=== PATIENT | female | born 1990 | race Caucasian/White ===

== ENCOUNTER 2019-03-01 05:57 | Inpatient (IN) ==
[2019-03-01] MEDS ORDERED: FLU Vac QV 19-20 (6Month+)/PF 0.5 ML SYRINGE IM ONE (06:10)
[2019-03-01] MEDS ORDERED: Lidocaine 1% 20 ML MDV INFILT PRN (06:12)
[2019-03-01] MEDS ORDERED: Famotidine 20 MG/2 ML VIAL IVP PRN (06:12)
[2019-03-01] MEDS ORDERED: Naloxone 0.4 MG/ML INJ IVP PRN (06:12)
[2019-03-01] MEDS ORDERED: miSOPROStol 25 MCG TABLET PO PRN (06:12)
[2019-03-01] MEDS ORDERED: Metoclopramide 10 MG/2 ML VIAL IVP PRN (06:12)
[2019-03-01] MEDS ORDERED: *HR* Nalbuphine 10 MG/ML AMPUL IVP PRN (06:12)
[2019-03-01] MEDS ORDERED: Ringers Solution, Lactated 1,000 ML IVC SCH (06:15)
[2019-03-01] MEDS ORDERED: Ringers Solution, Lactated 1,000 ML ONE (06:17)
[2019-03-01 06:35] LABS: Basophils % 0.4 %; Eosinophils # 0.1 K/mcL (0.0-0.6); Eosinophils % 1.1 %; Hematocrit 30.3 % (35.3-44.9); Hemoglobin 9.6 g/dL (11.5-15.4); Immature Granulocytes % 0.7 % (0-4); Lymphocytes # 2.4 K/mcL (0.6-4.6); Mean Corpuscular HGB Conc 31.7 g/dL (31.6-35.5); Mean Corpuscular Volume 78.9 fL (83.0-100.0); Mean Platelet Volume 11.2 fL (9.4-12.4); Monocytes # 0.7 K/mcL (0.0-1.3); Monocytes % 6.1 %; Neutrophils # 7.9 K/mcL (1.6-8.9); Platelet Count 314 K/mcL (140-400); Red Blood Count 3.84 M/mcL (3.82-4.97); Red Cell Distribution Width 14.6 % (11.5-14.5); Segmented Neutrophils % 70.7 %; White Blood Count 11.2 K/mcL (4.3-11.1)
[2019-03-01] MEDS ORDERED: Oxytocin 20 units/ LR 1000 mL 20 UNIT/1,000 ML BAG IVC SCH (06:45)
[2019-03-01] MEDS ORDERED: Oxytocin 20 units/ LR 1000 mL 20 UNIT/1,000 ML BAG IVC ONE (06:46)
--- NOTE | 2019-03-01 06:59 | OB/GYN History & Physical ---
Date of Encounter: 03/01/19 Time of Encounter: 06:56 Assessment and Plan (1) 40 weeks gestation of Current visit: Yes Status: Acute (2) Obesity complicating in third trimester Current visit: Yes Status: Acute Admit for IOL. Cook catheter placed using sterile technique. Balloons inflated with sterile water 60ml uterine and 40ml vaginal. Plan for pitocin. Epidural when requested. Anticipate . Plan per Dr. Melendez History of Present Illness Chief complaint: IOL HPI: Ms. Dillon is a 28 year old female presenting at 40w2d for IOL. She reports having contractions this am. No leaking or bleeding. This has been uncomplicated other than obesity and a kidney stone that she was able to pass. She has had appropriate care with Dr. Melendez after transferring from [place] at 32 weeks. A positive Rubella immune Serologies negative GBS negative Past Med Surg Social Fam HX - Past Medical History Medical history: no medical history Additional medical history: Kidney stone, PCOS Psychiatric history: no psych history - Past Surgical History Surgical History: no surgical history - Social History Smoking Status: Never smoker Smokeless Tobacco Status: No Alcohol use: none Drug use: none - Family History Mother Family Member Ethnicity: Non- Living Status: Still Living Hx Family Cardiac Disorders: No Hx Family Respiratory Disorders: No Hx Family Cancer: No Hx Family GI Disorders: No Hx Family Genitourinary Disorders: No Hx Family Endocrine Disorder: No Hx Family Musculoskeletal Disorders: No Hx Family Neuromuscular Disorders: No Hx Family Neurologic Disorders: No Hx Family HEENT Disorders: No Hx Family Autoimmune Disorders: No Hx Family Reproductive Disorders: No Hx Family Psychosocial Disorders: No Hx Family Medical Disorders: No Obstetrical History - Pregnancies : 1 Medications and Allergies Allergy/AdvReac Type Severity Reaction Status Date / Time No Known Allergies Allergy Verified 03/01/19 06:12 Review of System OB All systems PM: reviewed and no additional remarkable complaints except as stated Exam - Constitutional Constitutional: well developed, well nourished, no acute distress, obese - HEENT HEENT: Mucus Membranes Moist - Lungs Respiratory exam: CTAB - Cardiovascular Cardiovascular exam: RRR - Abdomen Abdomen: Present: gravid, non tender - Extremities Extremities exam: normal inspection - Vulva Vulva: bilateral: normal - Cervix Dilation: 3 (2-3) Effacement: 80 Station: -2 - Anus/Rectum Anus/Rectum: Present: normal perianal skin Results Result Diagrams: 03/01/19 06:15 Abnormal lab results WBC 11.2 K/mcL (4.3-11.1) H 03/01/19 06:15 Hgb 9.6 g/dL (11.5-15.4) L 03/01/19 06:15 Hct 30.3 % (35.3-44.9) L 03/01/19 06:15 MCV 78.9 fL (83.0-100.0) L 03/01/19 06:15 MCH 25.0 pg (28.0-33.3) L 03/01/19 06:15 RDW 14.6 % (11.5-14.5) H 03/01/19 06:15 All other labs normal. - VTE Reasons for not Prescribing Prophylaxis: Treatment not Indicated - Low risk for VTE
[2019-03-01 08:02] LABS: Varicella Zoster IgG Antibody Positive
--- NOTE | 2019-03-01 08:46 | Anesthesia Evaluation PreOp ---
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 FHTs 120s. Height: 5'2" Weight: 233#/ 106kg/ BMI 42.6 NPO (# of Hours): 3 Pain Scale: 4 Pain Scale Used: Numeric (1 - 10) - HEENT Pupil (Motor): Pupils equal, EOMI Mallampati: III Oral Opening: Greater than 3 - PIPELINE SUPERINTENDENT LOC: Oriented PIPELINE SUPERINTENDENT Motor: Normal RUE, Normal LUE, Normal RLE, Normal LLE, Normal Face PIPELINE SUPERINTENDENT Sensory: Normal: RUE, LUE, RLE, LLE, Face - Cardiac Rhythm: Regular - Pulmonary Breath Sounds: bilateral Clear Respiratory Effort: Symmetrical Anesthesia Assess/Plan ASA Score: 3 ([place] BMI 42.6) Level of consciousness: Cooperative, Oriented, Tranquil Anesthetic Plan: Epidural Monitoring Plan: Standard Monitors
[2019-03-01] MEDS ORDERED: Epidural Premix (fent/bupiv) 110 ML EP SCH (09:00)
--- NOTE | 2019-03-01 10:32 | OB Labor Progress Note ---
Date of Encounter: 03/01/19 Time of Encounter: 10:29 Labor Progress Note - Subjective Subjective: Patient denies any concerns. She is feeling contractions and pressure. - Cervix Cervix: 3/80/petit in place - Heart Tones Heart Tones: 120's,category 1 - [place]: q 2-3 minutes - Interventions Interventions: Vaginal petit deflated for cervical exam and re-inflated with 40 ml as before - Plan Plan: Continue pitocin induction with Cook petit in place and EFM in anticipation of vaginal delivery Encouraged patient to get out of her recumbent position to sit on birthing ball or ambulate on monitor
[2019-03-01 10:36] LABS: Amphetamine Screen,Urine Negative ng/mL (Cutoff=1000); Barbiturate Screen,Urine Negative ng/mL (Cutoff=200); Benzodiazepines Screen,Urine Negative ng/mL (Cutoff=200); Cannabinoid Screen,Urine Negative ng/mL (Cutoff = 50); Cocaine Screen,Urine Negative ng/mL (Cutoff= 300); Opiate Screen,Urine Negative ng/mL (Cutoff=300); Phencyclidine Screen,Urine Negative ng/mL (Cutoff=25)
[2019-03-01] MEDS ORDERED: Bupivacaine-MPF 0.25% 10 ML VIAL ONE (12:05)
[2019-03-01] MEDS ORDERED: *HR* FentaNYL (PF) 100 MCG/2 ML VIAL ONE (12:05)
[2019-03-01 13:17] LABS: HIV-1&2 Antibody & p24 Ag Nonreactive (Nonreactive)
--- NOTE | 2019-03-01 14:14 | OB Labor Progress Note ---
Date of Encounter: 03/01/19 Time of Encounter: 14:11 Labor Progress Note - Subjective Subjective: Patient still complains of being uncomfortable on her right side s/p epidural. - Cervix Cervix: 6/90/-3 cephalic - Heart Tones Heart Tones: 130's, category 1 - [place]: q 2 minutes contractions - Interventions Interventions: Enciso is removed from the vagina after allowing the fluid to escape the balloon - Plan Plan: Continue pitocin induction. Call anesthesia to make patient comfortable via epidural. Anticipate vaginal delivery
[2019-03-01] MEDS ORDERED: Lidocaine/EPI 1:200k 2% PF 20 ML VIAL ONE (14:33)
[2019-03-01] MEDS: Ondansetron 4 MG/2 ML VIAL IVP PRN ×2 (15:08→21:59)
--- NOTE | 2019-03-01 16:00 | Anesthesia Procedures ---
Date of Encounter: 03/01/19 Time of Encounter: 12:10 Procedures: Anesthesia - Epidural/Spinal Patient ID/Chart reviewed: Yes Patient examined: Yes OB Eval: Gestational age: 40 OB Eval: : 1 OB Eval: Hx Para: 0 OB Eval: Dilated at (cm): 4 OB Eval: Contractions: Non-stressed pattern Consent Obtained: Yes Supplemental Oxygen: None/Room Air Site Prep: Aseptic Technique, Sterile prep and drape, 0.5% Chlorhexidine/Alcohol Patient position: upright Local Anesthetic: Lidocaine 1% Amount of Local Anesthetic used: 6 Touhy Needle Gauge: 18 Touhy Needle Depth (cm): 8 Catheter Depth at Skin (cm): 15 Test Dose (1.5% Lido + Epi): Volume given (mls): 3 Test Dose Result: Negative Loading Dose: 0.25% Marcaine (mls): 8 Loading Dose: Fentanyl (mcg): 100 Loading Dose Administered: Thru Catheter Infusion Med: 0.125% Bupivacaine w/ 2 mcg/ml Fentanyl Infusion Rate (mls/hr): [address]: Tegaderm, Tape Interspace Used: L3-L4 Loss of Resistance (ESTEVAN): Yes Blood: No CSF: No Paresthesia: No Procedure: Attempt # 1 at L 2-3, easily entered epidural space, unable to pass catheter, patient complaining of severe pain and resistance met. D/C'd cath and attempt # 2 at L3-4, again entered epidural space easily but unable to pass catheter. Attempt # 3 at L5-S1 , again very easily entered the epidural space and was able to pass catheter to 15cm. Dosed as documented, patient got full relief on the left but was still c/o some pain on the right. Positioned patient slightly on right and started infusion. Vitals + FHT's: Vital Signs Time 1210 1245 1250 1255 1300 BP 132/81 107/56 107/59 109/57 114/59 Pulse 89 85 69 70 71 FHTs 130 130 130 130 130
--- NOTE | 2019-03-01 16:12 | OB Labor Progress Note ---
Date of Encounter: 03/01/19 Time of Encounter: 16:10 Labor Progress Note - Subjective Subjective: Pt not comfortable with epidural. Requesting replacement - Cervix Cervix: 9/100/-2 - Heart Tones Heart Tones: Baseline 140 Moderate variability Accelerations present 15x15 No decelerations FHR Category I - [place]: Contractions every 2 minutes and palpate strong - Interventions Interventions: SVE AROM - small amount clear fluid - Plan Physician notified: Yes Physician notified details: Dr. Melendez updated Plan: Continue induction management Frequent position changes Anticipate
--- NOTE | 2019-03-01 17:41 | Anesthesia Progress Note ---
Date of Encounter: 03/01/19 Time of Encounter: 14:40 Anesthesia Note - Note Note: 03/01/19 17:35 called to LDR 12 for continued one-sided pain, on right side with contractions and worsening. Patient moaning with contractions and crying. Previous efforts to place patient on right side were ineffective for improving epidural spread. Epidural catheter hasn't migrated, pulled catheter back to 12cm and increased drip rate to 15ml per hour. Also gave 5ml 2% lido with epi. Discussed with patient that it is likely not going to improve the situation and the next step would be to discontinue the epidural and redo it. Also discussed that given the prior problems with threading the catheterand the multiple attempts, the potential for spinal headache could increase. Patient stated understanding and said she would think about it. Patient's and baby's vital signs stable t hroughout.
--- NOTE | 2019-03-01 17:46 | Anesthesia Procedures ---
Date of Encounter: 03/01/19 Time of Encounter: 16:30 Procedures: Anesthesia - Epidural/Spinal Patient ID/Chart reviewed: Yes Patient examined: Yes OB Eval: : 1 OB Eval: Hx Para: 0 OB Eval: Dilated at (cm): 9 OB Eval: Contractions: Non-stressed pattern Consent Obtained: Yes Supplemental Oxygen: None/Room Air Site Prep: Aseptic Technique, Sterile prep and drape, 0.5% Chlorhexidine/Alcohol Patient position: upright Local Anesthetic: Lidocaine 1% Amount of Local Anesthetic used: 3 Touhy Needle Gauge: 18 Touhy Needle Depth (cm): 8 Catheter Depth at Skin (cm): 12 Test Dose (1.5% Lido + Epi): Volume given (mls): 3 Test Dose Result: Negative Loading Dose: Other: 2% lidocaine with epi Loading Dose Administered: Thru Catheter Infusion Med: 0.125% Bupivacaine w/ 2 mcg/ml Fentanyl Infusion Rate (mls/hr): [address]: Tegaderm, Tape Interspace Used: L5-S1 Loss of Resistance (ESTEVAN): Yes Blood: No CSF: No Paresthesia: No Procedure: called to patient's room, crying and writhing in pain, continues to be only on the right side. Patient agrees to redo the epidural. Epidural space easily entered and catheter easily passed. Bolus given as charted and pump continued at 15ml per hour with previous settings of demand bolus of 4ml Q 20 mins. X 2 per hour. Patient appeared more comfortable and stated was only feeling pressure with contractions. Vitals + FHT's: Vital Signs Time 1630 1646 1650 1655 BP 140/76 134/76 126/72 128/69 Pulse 120 118 110 116 FHTs 120 120 120 120
[2019-03-01] MEDS ORDERED: Mag Hydrox/Al Hydrox/Simeth 30 ML UDC PO STA (19:26)
[2019-03-02] MEDS ORDERED: Ketorolac 30 MG/ML VIAL IM ONE (00:17)
--- NOTE | 2019-03-02 00:38 | OB/GYN Procedure Note ---
Delivery - Delivery Date: 03/02/19 Provider: Mellissa Melendez Intrapartum events: none Delivery induction: AROM, oxytocin, petit Delivery monitor: external FHT, external uterine Anesthesia: epidural Quantitated Blood Loss: 300 - Infant (s) Infant A Infant Delivery Date: 03/02/19 Delivery Time: 00:09 Presentation: vertex Position: OA Route of delivery: Gender: Female Viability: Viable Pounds: 7 Ounces: 8 Weight Gram: 3.4 kg at 1 minute: 6 at 5 mins: 8 Shoulder Dystocia: encountered Shoulder Dystocia Maneuvers: Jessica maneuver Shoulder dystocia time elapsed: 30 seconds Placenta: spontaneous Cord: 3 umbilical vessels - Repair Episiotomy: none Laceration Description: Perineal - 2nd Degree - Complications Delivery complications: none Delivery comments: Called to room with patient complete and +2 station. Under maternal effort she delivered a viable female weighing 7 lbs. 8 oz. and Apgars 6 and 8 at one and 5 minutes respectively over a second-degree perineal laceration. Following delivery of the head there is no nuchal cord encountered. Shoulder dystocia was encountered and lasted 30 seconds resolved with Jessica maneuver. The delivery of the body occurred with maternal effort and was placed on mom's abdomen. Cord was clamped and cut. Placenta delivered spontaneously, complete, and intact with a three-vessel cord. Second-degree perineal laceration was repaired using 3-0 Vicryl in standard fashion. There were no vaginal or labial lacerations on exam. Mother and infant are recovering in the LDR in stable condition. - Disposition Mom disposition: stable in LDR disposition: stable in LDR
[2019-03-02] MEDS ORDERED: Oxytocin 20 units/ LR 1000 mL 20 UNIT/1,000 ML BAG IVC ONE (03:05)
[2019-03-02] MEDS ORDERED: Acetaminophen 325 MG TABLET PO PRN (03:05)
[2019-03-02] MEDS ORDERED: Oxytocin 20 units/ LR 1000 mL 20 UNIT/1,000 ML BAG IVC SCH (03:05)
[2019-03-02] MEDS: Prenatal Vit/FA 1 EACH TABLET PO SCH (10:29)
[2019-03-02] MEDS ORDERED: *HR* Oxytocin 10 UNIT/ML VIAL IM ONE (12:14)
[2019-03-02] MEDS: Ibuprofen 600 MG TABLET PO PRN ×2 (13:27→21:44)
[2019-03-03] MEDS: Ibuprofen 600 MG TABLET PO PRN (05:04)
[2019-03-03 07:36] VITALS: BP 116/76
[2019-03-03] MEDS: Prenatal Vit/FA 1 EACH TABLET PO SCH (09:03)
--- NOTE | 2019-03-03 11:14 | Discharge Summary ---
Date of Encounter: 03/03/19 Time of Encounter: 11:10 - Discharge Diagnosis (1) Vaginal delivery Priority: Primary Status: Acute Comments: S/P vaginal delivery day 1 Pain is well controlled lochia is light and without clots VSS Tolerating regular diet; passing flatus Voiding without difficulty Breast feeding Discharge home today POC per consult with Dr Burch (2) Anemia complicating puerperium Priority: Secondary Status: Acute Comments: VSS, asymptomatic - Discharge Medications Prescriptions: New Breast Pump [BREAST PUMP] 1 each .ROUTE AD #1 each Docusate [Colace] 100 mg PO BID #30 capsule Ferrous Sulfate 325 mg PO BIDWM #180 tablet Ibuprofen [Motrin] 600 mg PO Q6H PRN #30 tablet PRN Reason: Cramping Acetaminophen [Tylenol] 650 mg PO Q6H PRN tablet PRN Reason: Mild Pain Home Medications: Acetaminophen [Tylenol] 650 mg PO Q6H PRN tablet 03/03/19 [Rx] Breast Pump [BREAST PUMP] 1 each .ROUTE AD #1 each 03/03/19 [Rx] Docusate [Colace] 100 mg PO BID #30 capsule 03/03/19 [Rx] Ferrous Sulfate 325 mg PO BIDWM #180 tablet 03/03/19 [Rx] Ibuprofen [Motrin] 600 mg PO Q6H PRN #30 tablet 03/03/19 [Rx] Allergies/Adverse Reactions: Allergy/AdvReac Type Severity Reaction Status Date / Time No Known Allergies Allergy Verified 03/01/19 06:12 Data Procedures and tests throughout hospitalization: Laboratory Tests 03/01/19 03/01/19 03/01/19 06:15 06:15 09:38 WBC 11.2 H RBC 3.84 Hgb 9.6 L Hct 30.3 L MCV 78.9 L MCH 25.0 L MCHC 31.7 RDW 14.6 H Plt Count 314 MPV 11.2 Immature Gran % 0.7 Seg Neutrophils % 70.7 Lymphocytes % 21.0 Monocytes % 6.1 Eosinophils % 1.1 Basophils % 0.4 Neutrophils # 7.9 Lymphocytes # 2.4 Monocytes # 0.7 Eosinophils # 0.1 Basophils # 0.0 Urine Opiates Screen Negative Ur Buprenorphine Scrn Negative Ur Barbiturates Screen Negative Ur Phencyclidine Scrn Negative Ur Amphetamines Screen Negative U Benzodiazepines Scrn Negative Urine Cocaine Screen Negative U Marijuana (THC) Screen Negative Ur Drug Screen Interp See Below HIV Ag/Ab Combo Qual Nonreactive VZV IgG Antibody Positive Date of admission: 03/01/19 05:57 Primary care physician: Erika Lu MD Consults: 03/02/19 03:05 Consult to Supervisor [employer] [CONS] Routine Comment: Vaginal delivery, consult needed Discharging clinician: Ellie Carter Anticipated date of discharge: 03/03/19 - Patient Status Disposition: Home, Self-Care Condition: Good Functional capacity at discharge: independent ambulation Overall status at discharge: patient is progressing back to baseline - Discharge Instructions Follow Up With: Erika Lu MD [Primary Care Provider] - Mellissa Melendez DO [Partnered Physician] - - Diet and Activity Activity: increase activity as tolerated Diet: regular diet Hospital Course Reason for admission: IUP at term Delivery: Episiotomy: none Laceration: 2nd degree Other procedures: none complications: none Discharge diagnosis: IUP at term delivered [place] baby: female Time Attestation: Total time spent providing and/or coordinating discharge services: Time Spent: Less than 30 minutes Exam - Constitutional Vitals: Temp Pulse Resp BP Pulse Ox 97.7 F 75 16 116/76 98 03/03/19 07:36 03/03/19 07:36 03/03/19 07:36 03/03/19 07:36 03/03/19 07:36 General appearance IM: cooperative, A&O X 3, pleasant, no acute distress - Respiratory Respiratory exam: Absent: respiratory distress - Cardiovascular Cardiovascular exam IM: Absent: irregular rhythm - GI/Abdominal GI/Abdominal exam IM: normal bowel sounds, soft - Rectal Rectal exam: deferred - Uterine Tone: Firm Uterus Position: At Umbilicus, Midline - Extremities Exam Extremities exam IM: Present: normal capillary refill, normal inspection, radial pulses palpable and symmetrical. Absent: calf tenderness - Neurological Exam Neurological exam: alert, oriented X3
[2019-03-03] MEDS ORDERED: FLU Vac QV 19-20 (6Month+)/PF 0.5 ML SYRINGE IM ONE (11:45)
== END 2019-03-03 13:33 | disposition home or self-care (01) | DRG 807 ==
LOC: 1NENULAB 05:57 → 1NENUOBS 03-02 03:04
PROVIDERS: ADMIT Obstetrics & Gynecology; ATTEND Obstetrics & Gynecology

== ENCOUNTER 2019-11-07 19:51 | Observation (INO) ==
[2019-11-07] MEDS ORDERED: *HR* FentaNYL (PF) 100 MCG/2 ML VIAL IVP ONE (20:20)
[2019-11-07] MEDS ORDERED: Ondansetron 4 MG/2 ML VIAL IVP ONE (20:20)
[2019-11-07] MEDS ORDERED: *HR* LORazepam 2 MG/ML VIAL IVP ONE ×2 (20:25→21:48)
[2019-11-07 21:00] LABS: Basophils # 0.1 K/mcL (0.0-0.2); Basophils % 0.6 %; Eosinophils # 0.1 K/mcL (0.0-0.6); Eosinophils % 1.3 %; Hematocrit 40.2 % (35.3-44.9); Immature Granulocytes % 0.2 % (0-4); Lymphocytes % 23.7 %; Mean Corpuscular HGB Conc 32.3 g/dL (31.6-35.5); Mean Corpuscular Hemoglobin 25.7 pg (28.0-33.3); Mean Corpuscular Volume 79.6 fL (83.0-100.0); Mean Platelet Volume 10.3 fL (9.4-12.4); Monocytes # 0.6 K/mcL (0.0-1.3); Monocytes % 7.3 %; Neutrophils # 5.6 K/mcL (1.6-8.9); Platelet Count 277 K/mcL (140-400); Red Blood Count 5.05 M/mcL (3.82-4.97); Red Cell Distribution Width 14.2 % (11.5-14.5); Segmented Neutrophils % 66.9 %; White Blood Count 8.4 K/mcL (4.3-11.1)
[2019-11-07 21:06] LABS: Bilirubin,Urine Small (Negative); Blood,Urine Negative (Negative); Clarity,Urine Cloudy (Clear); Color,Urine Dark Yellow (Yellow); Glucose,Urine (UA) Normal (Normal); Ketones,Urine 40 mg/dL (Negative); Leukocyte Esterase,Urine Small (Negative); Nitrite,Urine Negative (Negative); Protein,Urine Negative (Neg-Trace); Specific Gravity,Urine 1.011 (1.010-1.025); Urobilinogen,Urine Normal (Normal)
[2019-11-07 21:08] LABS: Bacteria,Urine Moderate per hpf (None-Few); Hyaline Casts,Urine None Seen per lpf (None-Few); Squamous Epithelial Cell,Urine Many per lpf (None-Few)
[2019-11-07 21:16] LABS: Yeast,Urine Few per hpf (None Seen)
[2019-11-07 21:29] LABS: Alanine Aminotransferase 549 Units/L (7-52); Albumin 4.3 g/dL (3.5-5.7); Albumin/Globulin Ratio 1.4 (1.1-2.2); Alkaline Phosphatase 158 Units/L (34-104); Aspartate Amino Transferase 406 Units/L (13-39); BUN/Creatinine Ratio 13 (6-26); Bilirubin,Direct 2.2 mg/dL (0.0-0.2); Bilirubin,Total 3.2 mg/dL (0.3-1.0); Blood Urea Nitrogen 9 mg/dL (6-20); Calcium 9.1 mg/dL (8.6-10.3); Carbon Dioxide 20 mEq/L (23-29); Chloride 106 mEq/L (98-107); Globulin 3.1 g/dL (2.4-3.5); Glucose 127 mg/dL (70-105); Lipase 123 Units/L (11-82); Osmolality,Calculated 280 (280-300); Potassium 3.5 mEq/L (3.5-5.1); Sodium 135 mEq/L (136-145); Total Protein 7.4 g/dL (6.4-8.9); eGFR For African Americans > 60 (> 60); eGFR For Non-African Americans > 60 (> 60)
[2019-11-07] MEDS ORDERED: 0.9 % Sodium Chloride 1,000 ML IVC ONE (21:47)
[2019-11-08] MEDS ORDERED: Naloxone 0.4 MG/ML INJ IVP PRN (00:55)
[2019-11-08] MEDS ORDERED: Ondansetron 4 MG/2 ML VIAL IVP PRN (00:55)
[2019-11-08] MEDS ORDERED: 0.9 % Sodium Chloride 1,000 ML IVC SCH (01:00)
[2019-11-08] MEDS ORDERED: Ketorolac 30 MG/ML VIAL IVP PRN (01:05)
[2019-11-08] MEDS: 0.9 % Sodium Chloride 1,000 ML IVC SCH ×2 (03:25→06:51)
[2019-11-08 03:49] LABS: Hepatitis B Surface Antigen Nonreactive (Nonreactive)
[2019-11-08 04:17] LABS: Hepatitis C Virus Antibody Nonreactive (Nonreactive)
[2019-11-08 04:18] LABS: Hepatitis B Core IgM Nonreactive (Nonreactive)
[2019-11-08 04:19] LABS: Hepatitis A Antibody IgM Nonreactive (Nonreactive)
[2019-11-08 04:58] LABS: Basophils % 0.4 %; Eosinophils # 0.1 K/mcL (0.0-0.6); Eosinophils % 1.9 %; Hematocrit 38.5 % (35.3-44.9); Hemoglobin 12.2 g/dL (11.5-15.4); Immature Granulocytes % 0.3 % (0-4); Lymphocytes # 1.9 K/mcL (0.6-4.6); Lymphocytes % 28.4 %; Mean Corpuscular HGB Conc 31.7 g/dL (31.6-35.5); Mean Corpuscular Hemoglobin 25.6 pg (28.0-33.3); Mean Corpuscular Volume 80.9 fL (83.0-100.0); Mean Platelet Volume 10.6 fL (9.4-12.4); Monocytes # 0.6 K/mcL (0.0-1.3); Monocytes % 9.1 %; Neutrophils # 4.1 K/mcL (1.6-8.9); Platelet Count 247 K/mcL (140-400); Red Blood Count 4.76 M/mcL (3.82-4.97); Red Cell Distribution Width 14.2 % (11.5-14.5); Segmented Neutrophils % 59.9 %; White Blood Count 6.8 K/mcL (4.3-11.1)
[2019-11-08 05:14] LABS: % Iron Saturation 16 % (15-50); Iron 72 mcg/dL (50-170); Transferrin 330 mg/dL (203-362)
[2019-11-08 05:15] LABS: Alanine Aminotransferase 453 Units/L (7-52); Albumin 3.9 g/dL (3.5-5.7); Albumin/Globulin Ratio 1.6 (1.1-2.2); Alkaline Phosphatase 141 Units/L (34-104); Aspartate Amino Transferase 345 Units/L (13-39); BUN/Creatinine Ratio 12 (6-26); Blood Urea Nitrogen 8 mg/dL (6-20); Calcium 8.4 mg/dL (8.6-10.3); Carbon Dioxide 20 mEq/L (23-29); Chloride 108 mEq/L (98-107); Chol/HDL Ratio 3.8 (0-4.9); Cholesterol 206 mg/dL (< 200); Globulin 2.5 g/dL (2.4-3.5); Glucose 100 mg/dL (70-105); HDL Cholesterol 54 mg/dL (40-59); LDL Cholesterol,Calculated 130 mg/dL (0-99); Osmolality,Calculated 288 (280-300); Sodium 140 mEq/L (136-145); Total Protein 6.4 g/dL (6.4-8.9); Triglycerides 112 mg/dL (< 150); Troponin I < 0.03 ng/mL (< 0.04); eGFR For African Americans > 60 (> 60); eGFR For Non-African Americans > 60 (> 60)
[2019-11-08 05:32] LABS: Ferritin 18 ng/mL (10-120)
[2019-11-08] MEDS ORDERED: Piperacillin/Tazobactam 3.375 GM in 0.9 % Sodium Chloride Mini Bag 100 ML IVPB SCH (08:00)
[2019-11-09 02:45] LABS: Basophils # 0.1 K/mcL (0.0-0.2); Basophils % 0.7 %; Eosinophils # 0.2 K/mcL (0.0-0.6); Eosinophils % 2.1 %; Hematocrit 40.5 % (35.3-44.9); Hemoglobin 12.7 g/dL (11.5-15.4); Immature Granulocytes % 0.3 % (0-4); Lymphocytes # 2.8 K/mcL (0.6-4.6); Lymphocytes % 37.1 %; Mean Corpuscular HGB Conc 31.4 g/dL (31.6-35.5); Mean Corpuscular Hemoglobin 25.6 pg (28.0-33.3); Mean Corpuscular Volume 81.7 fL (83.0-100.0); Mean Platelet Volume 10.3 fL (9.4-12.4); Monocytes # 0.6 K/mcL (0.0-1.3); Monocytes % 8.1 %; Neutrophils # 3.9 K/mcL (1.6-8.9); Platelet Count 256 K/mcL (140-400); Red Blood Count 4.96 M/mcL (3.82-4.97); Red Cell Distribution Width 14.6 % (11.5-14.5); Segmented Neutrophils % 51.7 %; White Blood Count 7.5 K/mcL (4.3-11.1)
[2019-11-09 03:03] LABS: Alanine Aminotransferase 381 Units/L (7-52); Albumin 3.9 g/dL (3.5-5.7); Albumin/Globulin Ratio 1.4 (1.1-2.2); Alkaline Phosphatase 133 Units/L (34-104); Aspartate Amino Transferase 186 Units/L (13-39); BUN/Creatinine Ratio 13 (6-26); Blood Urea Nitrogen 8 mg/dL (6-20); Calcium 8.7 mg/dL (8.6-10.3); Carbon Dioxide 22 mEq/L (23-29); Chloride 110 mEq/L (98-107); Globulin 2.8 g/dL (2.4-3.5); Glucose 86 mg/dL (70-105); Lipase 81 Units/L (11-82); Osmolality,Calculated 282 (280-300); Potassium 3.8 mEq/L (3.5-5.1); Sodium 137 mEq/L (136-145); Total Protein 6.7 g/dL (6.4-8.9); eGFR For African Americans > 60 (> 60); eGFR For Non-African Americans > 60 (> 60)
[2019-11-09 09:52] VITALS: BP 124/89
== END 2019-11-09 14:06 | disposition home or self-care (01) ==
LOC: EMEROOARM 19:51 → 3ANU 19:51 → SUATTDRO 23:54 → 3ANU 11-08 00:13
PROVIDERS: ADMIT Student in an Organized Health Care Education/Training Program; ATTEND Family Medicine